=== PATIENT | female | born 1990 | race Caucasian/White ===

== ENCOUNTER 2017-06-26 22:53 | Emergency (ER) | payer BC ==
[~2017-06-26] VITALS: Ht 165.1 cm; Wt 106.5 kg
[~2017-06-26 22:53] MED LIST: DOCU-131 PO; DOCU240C31 PO; IBUP-1222 PO; IBUP-1223 PO; OXYC-302 PO; PREN1TAB56 PO
[2017-06-26 22:54] VITALS: BP 146/85
== END 2017-06-26 23:36 | disposition home or self-care (01) ==
LOC: ED 23:29
DX: G51.0 Bell's palsy (principal)
CPT/HCPCS: 99283

== ENCOUNTER 2020-04-12 16:14 | Emergency (ER) | payer BC ==
[~2020-04-12] VITALS: Ht 165.1 cm; Wt 104.8 kg
--- NOTE | 2020-04-12 17:05 | NUR ---
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
--- NOTE | 2020-04-12 17:13 | NUR ---
TASK RN: PT WITH ONSET OF RUQ ABD YESTERDAY MORNING. PAIN CONSTANT AND RADIATES UP INTO RIGHT SHOULDER AND PAIN INCREASES WITH INSPIRATION. PT STATES SHE HAD A "NORMAL BM" TODAY AND DENIES PAIN WITH URINATION. BP AND PULSE OX MONITORS IN PLACE. URINE SAMPLE SENT TO LAB. CALL LIGHT W/I REACH. AWAITING PROVIDER EVAL. NAD NOTED. SBAR RPT TO [facility]
[2020-04-12 17:26] LABS: BASOPHILS # (AUTO) 0.05 x10^3/uL (0-0.1); BASOPHILS % (AUTO) 1 % (0-1); EOSINOPHILS # (AUTO) 0.17 x10^3/uL (0-0.4); EOSINOPHILS % (AUTO) 2 % (1-7); LYMPHOCYTES # (AUTO) 2.96 x10^3/uL (1-3.4); LYMPHOCYTES % (AUTO) 32 % (22-44); MD NO; MEAN CORPUSCULAR HEMOGLOBIN 27.9 pg (27.0-34.8); MEAN CORPUSCULAR HGB CONC 33.4 g/dL (32.4-35.8); MEAN CORPUSCULAR VOLUME 83.6 fL (80-100); MEAN PLATELET VOLUME 8.7 fL (7.4-10.4); MONOCYTES # (AUTO) 0.54 x10^3/uL (0.2-0.8); MONOCYTES % (AUTO) 6 % (2-9); NEUTROPHILS # (AUTO) 5.56 x10^3/uL (1.8-6.8); NEUTROPHILS % (AUTO) 60 % (42-75); PLATELET COUNT 255 x10^3/uL (130-400); RED CELL DISTRIBUTION WIDTH 13.4 % (9.6-15.2)
[2020-04-12 17:30] LABS: MICROSCOPIC NOT IND
[2020-04-12 17:36] LABS: ALANINE AMINOTRANSFERASE 21 U/L (12-78); ALBUMIN 3.9 g/dL (3.4-5.0); ANION GAP 5 mmol/L (5-15); CALCIUM 8.7 mg/dL (8.5-10.1); CHLORIDE 112 mmol/L (98-107)
[2020-04-12 17:41] LABS: ALKALINE PHOSPHATASE 79 U/L (45-117); BILIRUBIN,TOTAL 0.2 mg/dL (0.2-1.0); TOTAL PROTEIN 7.8 g/dL (6.4-8.2)
--- NOTE | 2020-04-12 18:04 | NUR ---
US IN ROOM
--- NOTE | 2020-04-12 19:00 | NUR ---
REPORT FROM [facility]. PT RESTING IN BED, NO SIGNS OF DISTRESS. REGISTRATION IN ROOM AT THIS TIME, PT CONVERSING.
[2020-04-12 19:48] VITALS: BP 131/70
== END 2020-04-12 19:50 | disposition home or self-care (01) ==
LOC: ED 19:00
DX: K80.20 Calculus of gallbladder without cholecystitis without obstruction (principal); R10.31 Right lower quadrant pain; R11.0 Nausea
CPT/HCPCS: 36415; 76700; 80053; 81003; 83690; 84703; 85025; 99284

== ENCOUNTER 2020-11-25 13:39 | Emergency (ER) | payer BC ==
[~2020-11-25 13:39] MED LIST changes: -OXYC-302 PO; +OXYC1TAB14 PO
[2020-11-25 13:46] VITALS: BP 146/68
[2020-11-25 14:15] LABS: CALCIUM 8.5 mg/dL (8.5-10.1); CHLORIDE 110 mmol/L (98-107)
[2020-11-25 14:21] LABS: BASOPHILS % (AUTO) 1 % (0-1); EOSINOPHILS % (AUTO) 1 % (1-7); LYMPHOCYTES % (AUTO) 30 % (22-44); MEAN CORPUSCULAR HEMOGLOBIN 27.7 pg (27.0-34.8); MEAN CORPUSCULAR HGB CONC 33.5 g/dL (32.4-35.8); MEAN PLATELET VOLUME 8.2 fL (7.4-10.4); MONOCYTES % (AUTO) 8 % (2-9); NEUTROPHILS % (AUTO) 60 % (42-75); PLATELET COUNT 254 x10^3/uL (130-400); RED BLOOD COUNT 4.52 x10^6/uL (3.82-5.3); RED CELL DISTRIBUTION WIDTH 14.1 % (9.6-15.2)
[2020-11-25 14:22] LABS: MD NO
[2020-11-25 14:23] LABS: ALANINE AMINOTRANSFERASE 41 U/L (12-78); ALBUMIN 3.8 g/dL (3.4-5.0); ALKALINE PHOSPHATASE 61 U/L (45-117); ANION GAP 6 mmol/L (5-15); BILIRUBIN,TOTAL 0.3 mg/dL (0.2-1.0); CREATININE 0.53 mg/dL (0.55-1.02); TOTAL PROTEIN 7.4 g/dL (6.4-8.2)
--- NOTE | 2020-11-25 15:53 | NUR ---
PT TO ROOM FROM LOBBY
--- NOTE | 2020-11-25 16:20 | NUR ---
PT IN BED WITH NO SIGNS OR SYMPTOMS OF ACUTE DISTRESS NOTED RESPIRATIONS EVEN AND UNLABORED PROVIDER AT BEDSIDE TO ASSESS.
== END 2020-11-25 17:23 | disposition home or self-care (01) ==
LOC: ED 17:18
DX: O20.0 Threatened abortion (principal); M54.5 Low back pain; R10.2 Pelvic and perineal pain; Z3A.08 8 weeks gestation of pregnancy
CPT/HCPCS: 36415; 76801; 80053; 84702; 85025; 86901; 99284

== ENCOUNTER 2020-11-30 14:33 | Day surgery (SDC) | payer BC ==
[~2020-11-30] VITALS: Ht 165.1 cm; Wt 112.4 kg
[2020-11-30] MEDS ORDERED: LACTATED RINGERS 1,000 ML IV SCH (15:00)
[2020-11-30] MEDS ORDERED: PLEASE ENTER HEIGHT AND WEIGHT MC SCH (15:30)
[2020-11-30] MEDS ORDERED: CHLORHEXIDINE 15 ML UDC PO ONE (15:30)
[2020-11-30 15:33] VITALS: BP 121/81
[2020-11-30] MEDS ORDERED: DENIES (15:36)
[2020-11-30] MEDS ORDERED: MISOPROSTOL 200 MCG TABLET ONE (16:23)
[2020-11-30] MEDS ORDERED: BUPIVACAINE/PF 0.25% ONE (16:23)
[2020-11-30] MEDS ORDERED: OXYTOCIN 10 UNITS/ML, 1ML ONE (16:23)
[2020-11-30] MEDS ORDERED: EPINEPHRINE 1 MG/ML, 1ML ONE (16:24)
[2020-11-30] MEDS ORDERED: METHYLERGONOVINE 0.2 MG/ML IM ONE (16:24)
[2020-11-30] MEDS ORDERED: SILVER NITRATE STICK TP ONE (16:24)
[2020-11-30] MEDS ORDERED: FENTANYL PF 250 MCG/5ML ONE (16:33)
[2020-11-30] MEDS ORDERED: MIDAZOLAM 1 MG/ML, 2ML ONE (16:33)
[2020-11-30] MEDS ORDERED: VASOPRESSIN 20 UNIT/ML, 1ML ONE (16:36)
[2020-11-30] MEDS ORDERED: KETOROLAC 30 MG/1 ML ONE (16:36)
[2020-11-30] MEDS ORDERED: MEPERIDINE/PF 25MG/0.5ML IVPush PRN (17:00)
[2020-11-30] MEDS ORDERED: OXYcodone 5 MG/5 ML ORAL.SOL UDC PO PRN (17:00)
[2020-11-30] MEDS ORDERED: morphine SULFATE 10 MG/ML, 1ML IVPush PRN (17:00)
[2020-11-30] MEDS ORDERED: ACETAMINOPHEN 325 MG TABLET PO PRN (17:00)
[2020-11-30] MEDS ORDERED: LABETALOL 5MG/ML, 20ML IV PRN (17:00)
[2020-11-30] MEDS ORDERED: HALOPERIDOL 5 MG/ML IV PRN (17:00)
[2020-11-30] MEDS ORDERED: FENTANYL PF 100 MCG/2ML IV PRN (17:00)
[2020-11-30] MEDS ORDERED: hydrALAzine 20 MG/ML, 1ML IV PRN (17:00)
[2020-11-30] MEDS ORDERED: PROMETHAZINE 25 MG/ML, 1ML IVPush PRN (17:00)
[2020-11-30] MEDS ORDERED: HYDROmorphone 1 MG/ML, 1ML INJ IVPush PRN (17:00)
== END 2020-11-30 19:45 | disposition home or self-care (01) ==
LOC: OR 14:33
PROVIDERS: ATTEND Obstetrics & Gynecology
DX: O02.1 Missed abortion (principal); N85.4 Malposition of uterus; G51.0 Bell's palsy; Z98.890 Other specified postprocedural states; Z79.899 Other long term (current) drug therapy; Z20.822 Contact with and (suspected) exposure to COVID-19; Z72.89 Other problems related to lifestyle; Z3A.08 8 weeks gestation of pregnancy
CPT/HCPCS: 36415; 59820; 86850; 86900; 87635; 88305; J0171; J1885; J2210; J2250; J3010; J7120; J2590